=== PATIENT | male | born 1990 | race Caucasian/White ===

== ENCOUNTER 2019-12-01 10:36 | Emergency (ER) | payer OTHER, SELFPAY ==
--- NOTE | ~2019-12-01 | XR_ITS ---
EXAMINATION: XR hand RT min 3V EXAM DATE: 12/01/2019 11:05 INDICATION: Initial encounter following injury, with pain of the right hand, third MCP region. TECHNIQUE: Right hand frontal, lateral and oblique projections obtained and reviewed. There is no pr ior study for comparison. FINDINGS: Right metacarpal bones are unremarkable. There are no acute right hand fractures or dislo cations identified. There is no subcutaneous gas. The soft tissue is unremarkable. There are no r adiopaque foreign bodies. IMPRESSION: No acute osseous findings. Reviewed, dictated and finalized at location A. IMPRESSION: No acute osseous findings.
--- NOTE | 2019-12-01 10:46 | ED.UPPEXIN ---
HPI - Extremity Injury (Upper) General Chief Complaint: Extremity Injury, Upper Stated Complaint: HAND INJURY Time Seen by Provider: 12/01/19 10:44 Source: patient Mode of arrival: ambulatory Limitations: no limitations History of Present Illness HPI narrative: A 29 y/o male pt presents to the ED, with c/o injury to his rt hand that occurred at 930AM this morning. 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 He notes pain to his dorsal rt hand and limited ROM to his rt hand/fingers. Pt denies any fever, chills, N/V, numbness or tingling to RUE, or any other injuries. complaint: injury to: hand (rt dorsal) Onset (ago): hour(s) (1) Other Extremity Injury: Right: hand Other injuries: none Place: work Associated symptoms: other (pain to dorsal rt hand, limited ROM to rt hand/finger) Related Data Home Medications Medication Instructions Recorded Confirmed No Home Medications 12/01/19 12/01/19 Allergies Allergy/AdvReac Type Severity Reaction Status Date / Time No Known Allergies Allergy Unverified 12/01/19 10:54 Review of Systems Review of Systems: All systems reviewed & are unremarkable except as noted in HPI and below Constitutional: Constitutional: Denies chills and Denies fever(s) Gastrointestinal: Gastrointestinal: Denies nausea and Denies vomiting Musculoskeletal: Musculoskeletal: Reports limited range of motion (rt hand/fingers), Denies numbness (RUE), Denies tingling (RUE) and Reports other (pain to rt hand) PMFSH Past Medical History Medical History (Updated 12/01/19 @ 11:36 by Jason Cheema MD) No significant past medical history Surgical History Surgical History (Updated 12/01/19 @ 11:25 by FRED Khoury) History of tonsillectomy Social History Social History (Updated 12/01/19 @ 11:25 by FRED Khoury) Occupation/Education: occupation 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 No bruises, no deformity, no swelling Musculoskeletal: Normal range of motion, nontender back Neurologic: Alert and oriented ?3, MITIGATION SUPERVISOR is normal as tested, no gross motor deficit Course Course Emergency Course: Stable Vital Signs Vital signs: Vital Signs Temperature 36.2 C L 12/01/19 10:51 Pulse Rate 102 H 12/01/19 10:51 Respiratory Rate 18 12/01/19 10:51 Blood Pressure 142/79 H 12/01/19 10:51 Pulse Oximetry 100 12/01/19 10:51 Temperature 36.2 C L 12/01/19 10:51 Pulse Rate 102 H 12/01/19 10:51 Respiratory Rate 18 12/01/19 10:51 Blood Pressure 142/79 H 12/01/19 10:51 Pulse Oximetry 100 12/01/19 10:51 MDM - Extremity Injury (Upper) MDM Narrative Medical decision making narrative: Strain, sprain is my concern. X-ray right hand ordered. Further plan to follow Imaging Data Radiologist's impression: ITS Impressions Hand X-Ray 12/01/19 11:15 IMPRESSION: No acute osseous findings. Critical Care Time Critical Care Time Critical Care Time: No Discharge Plan Discharge Clinical Impression: Finger sprain Qualifiers: Encounter type: initial encounter Finger:
[2019-12-01 10:51] VITALS: BP 142/79; PULSE 102; RESP 18; TEMP 36.2; O2SAT 100
== END 2019-12-01 11:53 | disposition home or self-care (01) ==
PROVIDERS: Emergency Provider Emergency Medicine
DX: S63.612A Unspecified sprain of right middle finger, initial encounter (principal); Y35.811A Legal intervention involving manhandling, law enforcement official injured, initial encounter
CPT/HCPCS: 73130; 99283